=== PATIENT | male | born 1965 | race Caucasian/White ===

== ENCOUNTER 2024-05-24 01:28 | Emergency (ER) | payer MEDICAID, OTHER ==
[~2024-05-24] VITALS: Ht 175.3 cm; Wt 155.1 kg
[2024-05-24] MEDS ORDERED: METO-358 PO (01:35)
[2024-05-24] MEDS ORDERED: SPIR50TA5 PO (01:35)
[2024-05-24] MEDS ORDERED: ASPI81TA31 PO (01:35)
[2024-05-24] MEDS ORDERED: AMIT25TA9 PO (01:35)
[2024-05-24] MEDS ORDERED: LEVE750T56 PO (01:35)
[2024-05-24] MEDS ORDERED: HYDROCODONE/APAP 10-325 MG TABLET ONE (01:38)
[2024-05-24] MEDS ORDERED: ONDANSETRON ODT 4 MG TAB.RAPDIS ONE (01:38)
[2024-05-24] MEDS: HYDROCODONE/APAP 10-325 MG TABLET PO ONE (01:43)
[2024-05-24] MEDS ORDERED: BUTA1CAP46 PO (01:43)
[2024-05-24] MEDS: ONDANSETRON ODT 4 MG TAB.RAPDIS SL ONE (01:53)
[2024-05-24] MEDS: HYDROCODONE/APAP 5-325MG TABLET PO ONE (04:10)
[2024-05-24] MEDS ORDERED: HYDROCODONE/APAP 5-325MG TABLET ONE (04:11)
[2024-05-24 07:44] VITALS: BP 133/78; O2SAT 99
== END 2024-05-24 07:45 | disposition home or self-care (01) ==
LOC: ER 01:31
DX: G43.909 Migraine, unspecified, not intractable, without status migrainosus (principal); F17.200 Nicotine dependence, unspecified, uncomplicated; Z86.73 Personal history of transient ischemic attack (TIA), and cerebral infarction without residual deficits; Z79.82 Long term (current) use of aspirin; Z79.899 Other long term (current) drug therapy
CPT/HCPCS: A4606; A4663; Q0162